=== PATIENT | male | born 1990 | race American Indian/Alaskan Native ===

== ENCOUNTER 2019-05-20 11:30 | Emergency (ER) | payer OTHER ==
[~2019-05-20] VITALS: Ht 188 cm; Wt 93.9 kg
[2019-05-20] MEDS ORDERED: NORTRIPTYLINE H10 MG PO (11:36)
[2019-05-20] MEDS ORDERED: REMERON15 MG PO (11:36)
[2019-05-20] MEDS ORDERED: ABILIFY2 MG (11:36)
[2019-05-20] MEDS ORDERED: BUSPIRONE HCL10 MG (11:36)
== END 2019-05-20 14:00 | disposition home or self-care (01) ==
LOC: ED 11:30
DX: S09.90XA Unspecified injury of head, initial encounter (principal); S09.92XA Unspecified injury of nose, initial encounter; X83.8XXA Intentional self-harm by other specified means, initial encounter
CPT/HCPCS: 70450; 70486; 72125; 99284-25

== ENCOUNTER 2019-12-05 21:45 | Emergency (ER) | payer OTHER ==
[~2019-12-05] VITALS: Ht 188 cm; Wt 93.9 kg
[~2019-12-05 21:45] MED LIST: ABILIFY2 MG; BUSPIRONE HCL10 MG; NORTRIPTYLINE H10 MG PO; REMERON15 MG PO
[2019-12-05] MEDS ORDERED: PROPRANOLOL HCL10 MG PO (21:57)
[2019-12-05] MEDS ORDERED: TRAZODONE HCL150 MG PO (21:57)
--- NOTE | 2019-12-07 12:26 | EKG ---
[facility] [address] [place], [place] [address] Signed Normal sinus rhythm Normal ECG No previous ECGs available Confirmed by DO KITCHEN DO ([id number]) on 12/07/2019 12:25:58 PM Electronically Signed By: DO KITCHEN DO 12/07/19 1226 PATIENT NAME: SELAM MOREL [place] Electrocardiogram DATE OF : 89 PHYSICIAN: DO KITCHEN DO REPORT #: [id number] REPORT IS CONFIDENTIAL AND NOT TO BE RELEASED WITHOUT AUTHORIZATION
== END 2019-12-05 23:28 | disposition home or self-care (01) ==
LOC: ED 21:45
DX: R55 Syncope and collapse (principal); I10 Essential (primary) hypertension; Z79.899 Other long term (current) drug therapy
CPT/HCPCS: 70450; 93005; 93010; 99284-25

== ENCOUNTER 2019-12-11 21:29 | Emergency (ER) | payer OTHER ==
[~2019-12-11] VITALS: Ht 188 cm; Wt 93.9 kg
[~2019-12-11 21:29] MED LIST changes: +PROPRANOLOL HCL10 MG PO; +TRAZODONE HCL150 MG PO
--- OUTSIDE RECORDS SUMMARY | 2019-12-11 21:32 | XMS ---
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 CRITERIA MET - [facility] - 2 Visits in 30 Days CARE PROVIDERS There are no care providers on record at this time. [place] has no Care Guidelines for this patient. [facility] MO[facility]: Visits indicate total known visits. ED/C VISIT TRACKING (12 MO.) [facility] COMPLAINT: - NECK INJ 12/05/2019 21:[address] [facility] [place] [facility] [place] TYPE: Emergency COMPLAINT: - POSSIBLE SEIZURE DIAGNOSES: - Essential (primary) hypertension - Other group home (current) drug therapy - Syncope and collapse 05/20/2019 11:[address] [facility] [place] [facility] [place] TYPE: Emergency COMPLAINT: - ATTEMPTED SUICIDE DIAGNOSES: - Unspecified injury of head, initial encounter - Unspecified injury of nose, initial encounter - Intentional self-harm by other specified means, initial encou INPATIENT VISIT TRACKING (12 MO.) No inpatient visits to display in this time frame [id number]
== END 2019-12-11 23:29 | disposition home or self-care (01) ==
LOC: ED 21:29
DX: S06.0X9A Concussion with loss of consciousness of unspecified duration, initial encounter (principal); S16.1XXA Strain of muscle, fascia and tendon at neck level, initial encounter; I10 Essential (primary) hypertension; Z79.899 Other long term (current) drug therapy; Y04.0XXA Assault by unarmed brawl or fight, initial encounter
CPT/HCPCS: 70450; 72125; 99284-25